=== PATIENT | male | born 1950 | race Caucasian/White ===

== ENCOUNTER 2017-08-12 16:29 | Emergency (ER) | payer OTHER ==
--- NOTE | 2017-08-12 16:43 | CPEKG ---
Heart Rate: 58 RR Interval: 1034 P-R Interval: 148 QRSD Interval: 88 QT Interval: 396 QTC Interval: 389 P [place]: 78 QRS [place]: -44 T Wave [place]: 69 EKG Severity - ABNORMAL ECG - EKG Impression: SINUS RHYTHM EKG Impression: RAA, CONSIDER BIATRIAL ABNORMALITIES EKG Impression: LEFT AXIS DEVIATION EKG Impression: Similar to previous Electronically Signed By: Augustus Hook 12-Aug-2017 17:03:07
[2017-08-12] MEDS ORDERED: ASPIRIN 81 MG CHEWABLE TAB PO ONE (16:54)
[2017-08-12 17:02] LABS: % IMMATURE GRANULYOCYTES 0.2 % (0.0-1.1); ABSOLUTE IMMATURE GRANULOCYTES 0.01 10^3/uL (0.00-0.10); ADD DIFF? NO; ADD MORPH? NO; ADD SCAN? NO; ATYPICAL LYMPHOCYTE FLAG 10 (0-99); FRAGMENT RBC FLAG 0 (0-99); HEMOGLOBIN 14.9 g/dL (13.7-17.5); LEFT SHIFT FLG 0 (0-99); LIPEMIA HEMOLYSIS FLAG 90 (0-99); MEAN CELL HEMOGLOBIN 33.8 pg (27.9-34.1); MEAN CELL HEMOGLOBIN CONCENTR. 34.7 g/dL (32.4-36.7); MEAN CELL VOLUME 97.5 fL (81.5-99.8); MEAN PLATELET VOLUME 10.2 fL (8.7-11.7); PLATELET CLUMPS FLAG 0 (0-99); PLATELET COUNT 268 10^3/uL (150-400); RED BLOOD CELL COUNT 4.41 10^6/uL (4.40-6.38); RED CELL DISTRIBUTION WIDTH 12.6 % (11.5-15.2)
--- NOTE | 2017-08-12 17:02 | EDPHY ---
H & P Stated Complaint: chest pressure with activity Time Seen by Provider: 08/12/17 16:36 HPI/ROS: CHIEF COMPLAINT: Chest tightness HISTORY OF PRESENT ILLNESS: The patient is a 67-year-old man who was hiking at 8,000 feet with his when he noticed easy fatigability and shortness of breath and chest tightness. His states that this is very unusual for him. He states that he still has symptoms if he tries to walk briskly. Yesterday he felt fine and he does not have any pain or shortness of breath at rest. He states that he had a catheterization in 2008 that revealed a small partially occluded vessel that was managed medically. 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 Edwards. No recent fevers or infections. REVIEW OF SYSTEMS: Constitutional: denies: chills, fever, recent illness, recent injury EENTM: denies: blurred vision, double vision, nose congestion Respiratory: denies: cough, shortness of breath Cardiac: See HPI Gastrointestinal/Abdominal: denies: abdominal pain, diarrhea, nausea, vomiting, blood streaked stools Genitourinary: denies: dysuria, frequency, hematuria, pain Musculoskeletal: denies: joint pain, muscle pain Skin: denies: lesions, rash, jaundice, bruising Neurological: denies: headache, numbness, paresthesia, tingling, dizziness, weakness Hematologic/Lymphatic: denies: blood clots, easy bleeding, easy bruising Immunologic/allergic: denies: HIV/AIDS, transplant EXAM: GENERAL: Well-appearing, well-nourished and in no acute distress. HEAD: Atraumatic, normocephalic. EYES: Pupils equal round and reactive to light, extraocular movements intact, sclera anicteric, conjunctiva are normal. ENT: TMs normal, nares patent, oropharynx clear without exudates. Moist mucous membranes. NECK: Normal range of motion, supple without lymphadenopathy or JVD. LUNGS: Breath sounds clear to auscultation bilaterally and equal. No wheezes rales or rhonchi. HEART: Regular rate and rhythm without murmurs, rubs or gallops. ABDOMEN: Soft, nontender, normoactive bowel sounds. No guarding, no rebound. No masses appreciated. BACK: No CVA tenderness, no spinal tenderness, step-offs or deformities EXTREMITIES: Normal range of motion, no pitting or edema. No clubbing or cyanosis. NEUROLOGICAL: Cranial nerves II through XII grossly intact. Normal speech, normal gait. 5/5 strength, normal movement in all extremities, normal sensation PSYCH: Normal mood, normal affect. SKIN: Warm, dry, normal turgor, no visible rashes or lesions. Source: Patient Exam Limitations: No limitations - Personal History Current Tetanus/Diphtheria Vaccine: Unsure Current Tetanus Diphtheria and Acellular Pertussis (TDAP): Unsure - Medical/Surgical History Hx Asthma: No Hx Chronic Respiratory Disease: No Hx Diabetes: No Hx Cardiac Disease: No Hx Renal Disease: No Hx Cirrhosis: No Hx Alcoholism: No Hx HIV/AIDS: No Hx Splenectomy or Spleen Trauma: No Other PMH: chronic neck pain, - Social History Smoking Status: Never smoked Alcohol Use: Sober Drug Use: None Constitutional: Initial Vital Signs Temperature (C) 36.9 C 08/12/17 16:31 Heart Rate 63 08/12/17 16:31 Respiratory Rate 16 08/12/17 16:31 Blood Pressure 131/89 H 08/12/17 16:31 O2 Sat (%) 97 08/12/17 16:31 O2 Delivery Mode Room Air O2 (L/minute) 2 Allergies/Adverse Reactions: mefloquine Allergy (Verified 08/12/17 16:35) Home Medications: Medication Instructions Recorded Ibuprofen [Motrin 600 mg (RX)] 600 mg PO 01/25/12 Ranitidine HCl [Zantac liquid UD 150 mg PO BID 02/14/12 (RX)] Medical Decision Making - Diagnostics EKG Interpretation: An EKG obtained and was read and documented in trace view. Please see trace view for full reading and report. Sinus rhythm, no acute ischemic changes ED Course/Re-evaluation: 6:15 p.m. we discussed the lab results. The patient is reassured. He is currently asymptomatic. I recommended admission. I think the patient loose initially is failed stress test and has partial obstruction that may need stenting. He does not wish to stay in the hospital. He is concerned about cost would like to [facility] He has seen Dr. Edwards before. He did eventually agree to a repeat troponin. I will notify Cardiology service for a follow-up. 6:20 p.m. I discussed the case with Dr. Whitaker from Cardiology who is aware and agrees with recommendation for admission but will ensure follow-up as soon as possible. 8:40 p.m.. We are about draw the patient's repeat troponin. He is completely comfortable and is in reading in the bed. He states that he is symptom free. I again offered admission and he declines. Repeat troponin pending. If this is negative bowel of his paperwork prepared for discharge. Care transferred to Dr. Leyva. Differential Diagnosis: Partial list of the Differential diagnosis considered include but were not limited to; acute coronary disease, coronary ski media, arrhythmia, and although unlikely based on the history and physical exam, I also considered infection, PE, pneumothorax, anxiety. I discussed these differential diagnoses and the plan with the patient as well as the usual and expected course. The patient understands that the diagnosis is provisional and that in medicine we are not always correct and that further workup is often warranted. Usual and customary warnings were given. All of the patient's questions were answered. The patient was instructed to return to the emergency department should the symptoms at all worsen or return, otherwise to followup with the physician as we discussed. - Data Points Laboratory Results: Laboratory Results 08/12/17 16:45 08/12/17 16:45 Medications Given: Discontinued Medications Aspirin (Aspirin) 324 mg PO EDNOW ONE Stop: 08/12/17 16:55 Last Admin: 08/12/17 17:05 Dose: 324 mg Departure - Departure Disposition: Home, Routine, Self-Care Clinical Impression: Chest pain Qualifiers: Chest pain type: unspecified Qualified Code(s): R07.9 - Chest pain, unspecified Condition: Fair Instructions: Chest Pain (ED) Referrals: Miguel Edwards MD [Medical Doctor] - 1-2 days without fail Rosangela Flores MD [Primary Care Provider] - As per Instructions
[2017-08-12 17:09] LABS: ANION GAP 9 mEq/L (8-16); CALCIUM 9.7 mg/dL (8.5-10.4); CARBON DIOXIDE 24 mEq/l (22-31); CHLORIDE 106 mEq/L (97-110); CREATININE 1.1 mg/dL (0.7-1.3); GLOMERULAR FILTRATION RATE > 60; GLUCOSE 72 mg/dL (70-100); POTASSIUM 4.1 mEq/L (3.5-5.2); SODIUM 139 mEq/L (134-144)
[2017-08-12 17:21] LABS: TROPONIN I < 0.012 ng/mL (0.000-0.034)
[2017-08-12 17:31] LABS: APTT 26.6 SEC (23.0-38.0); INR 0.98 (0.83-1.16); PROTIME(PATIENT) 12.9 SEC (12.0-15.0)
[2017-08-12 22:03] VITALS: BP 102/70; PULSE 58; RESP 18; TEMP 97.9; O2SAT 97
== END 2017-08-12 22:02 | disposition home or self-care (01) ==
DX: R07.9 Chest pain, unspecified (principal)

== ENCOUNTER 2017-08-23 19:31 | Observation (INO) | payer OTHER ==
[2017-08-23] MEDS ORDERED: NS 500 ML IV ONE (19:48)
--- NOTE | 2017-08-23 19:50 | CPEKG ---
Heart Rate: 63 RR Interval: 952 P-R Interval: 160 QRSD Interval: 106 QT Interval: 400 QTC Interval: 410 P [place]: 75 QRS [place]: -21 T Wave [place]: 63 EKG Severity - NORMAL ECG - EKG Impression: SINUS RHYTHM Electronically Signed By: Pat Douglas 23-Aug-2017 23:37:29
[2017-08-23 20:00] LABS: % IMMATURE GRANULYOCYTES 0.2 % (0.0-1.1); ABSOLUTE IMMATURE GRANULOCYTES 0.01 10^3/uL (0.00-0.10); ADD DIFF? NO; ADD MORPH? NO; ADD SCAN? NO; ATYPICAL LYMPHOCYTE FLAG 10 (0-99); FRAGMENT RBC FLAG 0 (0-99); HEMATOCRIT 42.9 % (40.0-51.0); HEMOGLOBIN 14.8 g/dL (13.7-17.5); LEFT SHIFT FLG 0 (0-99); LIPEMIA HEMOLYSIS FLAG 90 (0-99); MEAN CELL HEMOGLOBIN 33.3 pg (27.9-34.1); MEAN CELL HEMOGLOBIN CONCENTR. 34.5 g/dL (32.4-36.7); MEAN CELL VOLUME 96.6 fL (81.5-99.8); MEAN PLATELET VOLUME 10.2 fL (8.7-11.7); PLATELET CLUMPS FLAG 0 (0-99); PLATELET COUNT 296 10^3/uL (150-400); RED BLOOD CELL COUNT 4.44 10^6/uL (4.40-6.38); RED CELL DISTRIBUTION WIDTH 12.7 % (11.5-15.2)
[2017-08-23 20:21] LABS: ANION GAP 11 mEq/L (8-16); CALCIUM 9.6 mg/dL (8.5-10.4); CARBON DIOXIDE 27 mEq/l (22-31); CHLORIDE 101 mEq/L (97-110); CREATININE 0.9 mg/dL (0.7-1.3); GLOMERULAR FILTRATION RATE > 60; GLUCOSE 78 mg/dL (70-100); SODIUM 139 mEq/L (134-144)
[2017-08-23 20:32] LABS: TROPONIN I < 0.012 ng/mL (0.000-0.034)
--- NOTE | 2017-08-23 20:34 | EDPHY ---
H & P Time Seen by Provider: 08/23/17 19:47 HPI/ROS: HPI Chest pressure, shortness of breath. 67-year-old male by private vehicle with his . This patient was seen in our emergency department on August 12 for the same complaint. He had 2- troponins, unremarkable D-dimer, the emergency department physician wanted to admit him but he declined admission. He states that he felt better through the week. He reports that he saw a transit planning manager at [facility] yesterday. An EKG was repeated. An echocardiogram and provocative testing or not done. He reports worsening shortness of breath and dyspnea on exertion since this morning. He also describes having a substernal chest pressure which has been worsening today. ROS: Constitutional: No fever, no chills. No weakness. Eyes: No discharge. No changes in vision. ENT: No sore throat. No nasal congestion or rhinorrhea. Respiratory: No cough. As above. Cardiac: As above, no palpitations. Gastrointestinal: No abdominal pain, no vomiting, no diarrhea. Genitourinary: No hematuria. No dysuria or increased frequency with urination. Musculoskeletal: No back pain. No neck pain. No myalgias or arthralgias. Skin: No rashes. Neurological: No headache. No focal weakness or altered sensation. Past medical history: Chronic neck pain. Coronary artery disease with stents placed in 2008. As above. Social history: Nonsmoker. Here with his . No alcohol. Physical Exam: General Appearance: Alert, no distress. This patient is responding to questions appropriately and in full sentences. This patient appears well- hydrated and well-nourished. Eyes: Pupils equal and round no pallor or injection. No lid edema, erythema or injection. Respiratory: There are no retractions, lungs are clear to auscultation with good air movement bilaterally. No tachypnea. Cardiovascular: Regular rate and rhythm. No murmur appreciated. Gastrointestinal: Abdomen is soft and nontender, no masses, bowel sounds normal. No focal tenderness at McBurney's point. No Guzman sign. Neurological: Motor sensory function is grossly intact. Cranial nerves are normal. Gait is normal. Skin: Warm and dry, no rashes. Musculoskeletal: Neck is supple and nontender. Extremities are symmetrical. All joints range without pain or impingement. Psychiatric: No agitation. No depression. Database: EKG: EKG time is 7:48 p.m.; EKG shows a narrow complex normal sinus rhythm with a ventricular rate of 63. The [place], QRS, QT intervals are within normal limits. There are no ST-T wave changes indicative of ischemic or injury pattern. No evidence of right heart strain. Interpreted by me. Imaging: Chest x-ray AP portable; the cardiac mediastinal silhouette is unremarkable. No evidence of infiltrate or pneumothorax. No acute cardiopulmonary disease process noted. Interpreted by me. Procedures: Emergency department course: Vital signs reviewed and are normal. He was given 324 mg of chewed aspirin. He was placed on a cnc machine operator. IV established. EKG obtained and reviewed by myself. I discussed plan to admit him for provocative testing and echocardiogram. He endorses. 9:00 p.m., patient re-evaluated. Resting comfortably at this time. Results of his diagnostic workup discussed with him and his . All of their questions were answered. 9:05 p.m., spoke with on-call hospitalist Dr. Cathleen Forrester. She accepts this patient for admission to telemetry. Patient's remaining emergency department course under my care has been uneventful. He was admitted in stable condition to telemetry. Differential Diagnosis: The differential diagnosis on this patient includes but is not limited to thyroid disorder, acute coronary syndrome, heart failure. This represents a partial list of diagnoses considered. These considerations are based on history , physical exam, past history, reassessment and diagnostic testing. Smoking Status: Never smoked Constitutional: Initial Vital Signs Temperature (C) 36.7 C 08/23/17 19:36 Heart Rate 64 08/23/17 19:36 Respiratory Rate 16 08/23/17 19:36 Blood Pressure 128/83 H 08/23/17 19:36 O2 Sat (%) 100 08/23/17 19:36 O2 Delivery Mode Room Air Allergies/Adverse Reactions: mefloquine Allergy (Verified 08/12/17 16:35) Home Medications: Medication Instructions Recorded Ibuprofen [Motrin 600 mg (RX)] 600 mg PO 01/25/12 Ranitidine HCl [Zantac liquid UD 150 mg PO BID 02/14/12 (RX)] Medical Decision Making - Data Points Laboratory Results: Laboratory Results 08/23/17 19:50 08/23/17 19:50 08/23/17 08/23/17 08/23/17 19:50 19:50 19:50 WBC RBC Hgb Hct MCV MCH MCHC RDW Plt Count MPV Neut % (Auto) Lymph % (Auto) [place] % (Auto) Eos % (Auto) Baso % (Auto) Nucleat RBC Rel Count Absolute Neuts (auto) Absolute Lymphs (auto) Absolute Monos (auto) Absolute Eos (auto) Absolute Basos (auto) Absolute Nucleated RBC Immature Gran % Immature Gran # D-Dimer < 0.27 ug/mLFEU ug/mLFEU (0.00-0.50) Sodium 139 mEq/L mEq/L (134-144) Potassium 4.0 mEq/L mEq/L (3.5-5.2) Chloride 101 mEq/L mEq/L (97-110) Carbon Dioxide 27 mEq/l mEq/l (22-31) Anion Gap 11 mEq/L mEq/L (8-16) BUN 17 mg/dL mg/dL (7-23) Creatinine 0.9 mg/dL mg/dL (0.7-1.3) Estimated GFR > 60 Glucose 78 mg/dL mg/dL (70-100) Calcium 9.6 mg/dL mg/dL (8.5-10.4) Total Bilirubin 0.5 mg/dL mg/dL (0.1-1.4) Conjugated Bilirubin 0.1 mg/dL mg/dL (0.0-0.5) Unconjugated Bilirubin 0.4 mg/dL mg/dL (0.0-1.1) AST 25 IU/L IU/L (17-59) ALT 31 IU/L IU/L (21-72) Alkaline Phosphatase 73 IU/L IU/L (38-126) Troponin I < 0.012 ng/mL ng/mL (0.000-0.034) NT-Pro-B Natriuret Pep 90 pg/mL pg/mL (0-125) Total Protein 6.8 g/dL g/dL (6.3-8.2) Albumin 4.0 g/dL g/dL (3.5-5.0) Lipase 93 IU/L IU/L (23-300) TSH Pending 08/23/17 19:50 WBC 6.12 10^3/uL 10^3/uL (3.80-9.50) RBC 4.44 10^6/uL 10^6/uL (4.40-6.38) Hgb 14.8 g/dL g/dL (13.7-17.5) Hct 42.9 % % (40.0-51.0) MCV 96.6 fL fL (81.5-99.8) MCH 33.3 pg pg (27.9-34.1) MCHC 34.5 g/dL g/dL (32.4-36.7) RDW 12.7 % % (11.5-15.2) Plt Count 296 10^3/uL 10^3/uL (150-400) MPV 10.2 fL fL (8.7-11.7) Neut % (Auto) 60.0 % % (39.3-74.2) Lymph % (Auto) 29.9 % % (15.0-45.0) [place] % (Auto) 7.8 % % (4.5-13.0) Eos % (Auto) 1.8 % % (0.6-7.6) Baso % (Auto) 0.3 % % (0.3-1.7) Nucleat RBC Rel Count 0.0 % % (0.0-0.2) Absolute Neuts (auto) 3.67 10^3/uL 10^3/uL (1.70-6.50) Absolute Lymphs (auto) 1.83 10^3/uL 10^3/uL (1.00-3.00) Absolute Monos (auto) 0.48 10^3/uL 10^3/uL (0.30-0.80) Absolute Eos (auto) 0.11 10^3/uL 10^3/uL (0.03-0.40) Absolute Basos (auto) 0.02 10^3/uL 10^3/uL (0.02-0.10) Absolute Nucleated RBC 0.00 10^3/uL 10^3/uL (0-0.01) Immature Gran % 0.2 % % (0.0-1.1) Immature Gran # 0.01 10^3/uL 10^3/uL (0.00-0.10) D-Dimer Sodium Potassium Chloride Carbon Dioxide Anion Gap BUN Creatinine Estimated GFR Glucose Calcium Total Bilirubin Conjugated Bilirubin Unconjugated Bilirubin AST ALT Alkaline Phosphatase Troponin I NT-Pro-B Natriuret Pep Total Protein Albumin Lipase TSH Medications Given: Discontinued Medications Aspirin (Aspirin) 324 mg PO EDNOW ONE Stop: 08/23/17 20:36 Last Admin: 08/23/17 20:44 Dose: 324 mg Sodium Chloride (Ns) 500 mls @ 1,000 mls/hr IV EDNOW ONE PRN Reason: Protocol Stop: 08/23/17 20:17 Last Admin: 08/23/17 20:05 Dose: 500 mls Departure - Departure Disposition: [facility] [place] Inpatient Acute Clinical Impression: Dyspnea on exertion, Chest pressure Referrals: Rosangela Flores MD [Primary Care Provider] - As per Instructions
[2017-08-23] MEDS ORDERED: ASPIRIN 81 MG CHEWABLE TAB PO ONE (20:35)
[2017-08-23 20:43] LABS: BILIRUBIN,TOTAL 0.5 mg/dL (0.1-1.4); BILIRUBIN-CONJUGATED 0.1 mg/dL (0.0-0.5); BILIRUBIN-UNCONJUGATED 0.4 mg/dL (0.0-1.1); TOTAL PROTEIN 6.8 g/dL (6.3-8.2)
[2017-08-23] MEDS ORDERED: ONDANSETRON 4 MG/2 ML VIAL IVP PRN (22:18)
[2017-08-23] MEDS ORDERED: ONDANSETRON DISINTEGRATING 4 MG TAB PO PRN (22:18)
[2017-08-23] MEDS ORDERED: ACETAMINOPHEN 325 MG TAB PO PRN (22:18)
[2017-08-23] MEDS ORDERED: ONDANSETRON DISINTEGRATING 4 MG TAB TUBE PRN (22:24)
[2017-08-23] MEDS ORDERED: ACETAMINOPHEN 650 MG/20.3 ML UDCUP TUBE PRN (22:24)
--- NOTE | 2017-08-23 23:07 | PDGENHP ---
History and Physical - Chief Complaint Dyspnea - History of Present Illness 67 yo M w/ OA presents with dyspnea. 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 He also noted some mild, 2/10, chest pressure that improved with rest. He is usually quite athletic, can run up several flights of stairs without issue, and often undertakes long and strenuous hikes without these symptoms. He was first seen in the ED on 08/12 for similar symptoms. During that episode he was starting a hike when he again felt dyspneic and decided to stop. He started to feel better in the interim until the episode described above on the day of admission. History Information - Allergies/Home Medication List Allergies/Adverse Reactions: mefloquine Allergy (Verified 08/12/17 16:35) Home Medications: Aspirin EC [Aspirin EC 81 mg (*)] 81 mg PO DAILY 08/23/17 [Last Taken 08/22/17] Herbals/Supplements -Info Only 1 ea PO DAILY 08/23/17 [Last Taken 08/22/17] Ibuprofen [Motrin (*)] 200 mg PO DAILY PRN 08/23/17 [Last Taken 08/22/17] Omeprazole [Prilosec 20 mg] 20 mg PO DAILY PRN 08/23/17 [Last Taken 08/22/17] I have personally reviewed and updated: family history, medical history - Past Medical History arthritis - Family History Positive for: CAD - Social History Smoking Status: Never smoked Review of Systems Review of Systems: ROS: 10pt was reviewed & negative except for what was stated in HPI & below Physical Exam Physical Exam: Temp Pulse Resp BP Pulse Ox 36.4 C 53 L 14 118/73 97 08/23/17 22:35 08/23/17 22:35 08/23/17 22:35 08/23/17 22:35 08/23/17 22:35 Constitutional: no apparent distress, appears nourished Eyes: PERRL, EOMI Ears, Nose, Mouth, Throat: moist mucous membranes, no oral mucosal ulcers Cardiovascular: regular rate and rhythym, no murmur, rub, or gallop Respiratory: no respiratory distress, no rales or rhonchi Gastrointestinal: normoactive bowel sounds, soft, non-tender abdomen Skin: warm, normal color Musculoskeletal: full muscle strength, no muscle tenderness Neurologic: AAOx3, CN II-XII Intact Psychiatric: interacting appropriately, not anxious Lab Data & Imaging Review 08/23/17 19:50 08/23/17 19:50 WBC 6.12 10^3/uL (3.80-9.50) 08/23/17 19:50 RBC 4.44 10^6/uL (4.40-6.38) 08/23/17 19:50 Hgb 14.8 g/dL (13.7-17.5) 08/23/17 19:50 Hct 42.9 % (40.0-51.0) 08/23/17 19:50 MCV 96.6 fL (81.5-99.8) 08/23/17 19:50 MCH 33.3 pg (27.9-34.1) 08/23/17 19:50 MCHC 34.5 g/dL (32.4-36.7) 08/23/17 19:50 RDW 12.7 % (11.5-15.2) 08/23/17 19:50 Plt Count 296 10^3/uL (150-400) 08/23/17 19:50 MPV 10.2 fL (8.7-11.7) 08/23/17 19:50 Neut % (Auto) 60.0 % (39.3-74.2) 08/23/17 19:50 Lymph % (Auto) 29.9 % (15.0-45.0) 08/23/17 19:50 [place] % (Auto) 7.8 % (4.5-13.0) 08/23/17 19:50 Eos % (Auto) 1.8 % (0.6-7.6) 08/23/17 19:50 Baso % (Auto) 0.3 % (0.3-1.7) 08/23/17 19:50 Nucleat RBC Rel Count 0.0 % (0.0-0.2) 08/23/17 19:50 Absolute Neuts (auto) 3.67 10^3/uL (1.70-6.50) 08/23/17 19:50 Absolute Lymphs (auto) 1.83 10^3/uL (1.00-3.00) 08/23/17 19:50 Absolute Monos (auto) 0.48 10^3/uL (0.30-0.80) 08/23/17 19:50 Absolute Eos (auto) 0.11 10^3/uL (0.03-0.40) 08/23/17 19:50 Absolute Basos (auto) 0.02 10^3/uL (0.02-0.10) 08/23/17 19:50 Absolute Nucleated RBC 0.00 10^3/uL (0-0.01) 08/23/17 19:50 Immature Gran % 0.2 % (0.0-1.1) 08/23/17 19:50 Immature Gran # 0.01 10^3/uL (0.00-0.10) 08/23/17 19:50 D-Dimer < 0.27 ug/mLFEU (0.00-0.50) 08/23/17 19:50 Sodium 139 mEq/L (134-144) 08/23/17 19:50 Potassium 4.0 mEq/L (3.5-5.2) 08/23/17 19:50 Chloride 101 mEq/L (97-110) 08/23/17 19:50 Carbon Dioxide 27 mEq/l (22-31) 08/23/17 19:50 Anion Gap 11 mEq/L (8-16) 08/23/17 19:50 BUN 17 mg/dL (7-23) 08/23/17 19:50 Creatinine 0.9 mg/dL (0.7-1.3) 08/23/17 19:50 Estimated GFR > 60 08/23/17 19:50 Glucose 78 mg/dL (70-100) 08/23/17 19:50 Calcium 9.6 mg/dL (8.5-10.4) 08/23/17 19:50 Total Bilirubin 0.5 mg/dL (0.1-1.4) 08/23/17 19:50 Conjugated Bilirubin 0.1 mg/dL (0.0-0.5) 08/23/17 19:50 Unconjugated Bilirubin 0.4 mg/dL (0.0-1.1) 08/23/17 19:50 AST 25 IU/L (17-59) 08/23/17 19:50 ALT 31 IU/L (21-72) 08/23/17 19:50 Alkaline Phosphatase 73 IU/L (38-126) 08/23/17 19:50 Troponin I < 0.012 ng/mL (0.000-0.034) 08/23/17 19:50 NT-Pro-B Natriuret Pep 90 pg/mL (0-125) 08/23/17 19:50 Total Protein 6.8 g/dL (6.3-8.2) 08/23/17 19:50 Albumin 4.0 g/dL (3.5-5.0) 08/23/17 19:50 Lipase 93 IU/L (23-300) 08/23/17 19:50 TSH 2.300 uIU/mL (0.465-4.680) 08/23/17 19:50 Visualized and Interpreted Chest x-ray results: Yes Chest X-Ray results: no infiltrate Visualized and Interpreted EKG results: Yes EKG Interpretation: Positive for: normal sinsus rhythm, NS ST wave abnormalities Assessment & Plan Assessment: 67 yo M w/ OA presents with now second episode of dyspnea on exertion and mild chest pressure. Plan: 1. Chest pressure, dyspnea - Second visit to the ED for the same, he refused admission during his first visit on 08/12. Work-up thus far unremarkable with negative troponin and non-ischemic ECG. D-dimer also negative and VS within normal limits. Noting exertional nature of symptoms, very reasonable to rule out cardiac etiologies. CXR unremarkable aside from some diaphragmatic flattening despite being a never-smoker. It's possible second hand tobacco exposure may have led to some mild, undiagnosed COPD, which could be pursued if cardiac work-up unrevealing. - Trend cardiac enzymes, monitor on telemetry - Will order treadmill stress test for risk stratification noting patient's excellent functional baseline Diet - Regular, NPO @ MN Code - Full Ppx - SCDs Dispo - Admit to observation status
[2017-08-24 05:19] LABS: % IMMATURE GRANULYOCYTES 0.2 % (0.0-1.1); ABSOLUTE IMMATURE GRANULOCYTES 0.01 10^3/uL (0.00-0.10); ADD DIFF? NO; ADD MORPH? NO; ADD SCAN? NO; ATYPICAL LYMPHOCYTE FLAG 20 (0-99); FRAGMENT RBC FLAG 0 (0-99); HEMATOCRIT 36.9 % (40.0-51.0); HEMOGLOBIN 12.7 g/dL (13.7-17.5); LEFT SHIFT FLG 0 (0-99); LIPEMIA HEMOLYSIS FLAG 90 (0-99); MEAN CELL HEMOGLOBIN 33.2 pg (27.9-34.1); MEAN CELL HEMOGLOBIN CONCENTR. 34.4 g/dL (32.4-36.7); MEAN CELL VOLUME 96.3 fL (81.5-99.8); MEAN PLATELET VOLUME 10.8 fL (8.7-11.7); PLATELET CLUMPS FLAG 0 (0-99); PLATELET COUNT 255 10^3/uL (150-400); RED BLOOD CELL COUNT 3.83 10^6/uL (4.40-6.38); RED CELL DISTRIBUTION WIDTH 12.8 % (11.5-15.2)
[2017-08-24 05:46] LABS: ANION GAP 11 mEq/L (8-16); CALCIUM 8.8 mg/dL (8.5-10.4); CARBON DIOXIDE 24 mEq/l (22-31); CHLORIDE 108 mEq/L (97-110); CREATININE 0.9 mg/dL (0.7-1.3); GLOMERULAR FILTRATION RATE > 60; GLUCOSE 92 mg/dL (70-100); MAGNESIUM 1.9 mg/dL (1.6-2.3); POTASSIUM 4.3 mEq/L (3.5-5.2); SODIUM 143 mEq/L (134-144)
[2017-08-24 05:54] LABS: TROPONIN I < 0.012 ng/mL (0.000-0.034)
[2017-08-24] MEDS ORDERED: NON-FORMULARY NEW DRUG (Omeprazole [Prilosec 20 Mg] 20 MG) PO PRN (08:01)
[2017-08-24] MEDS ORDERED: ACETAMINOPHEN 325 MG TAB PO PRN (08:05)
[2017-08-24] MEDS ORDERED: PANTOPRAZOLE SODIUM 40 MG TAB PO PRN (08:06)
[2017-08-24 08:22] VITALS: PULSE 62; RESP 16; TEMP 97.9; O2SAT 94
[2017-08-24] MEDS ORDERED: ONDANSETRON DISINTEGRATING 4 MG TAB PO PRN (08:30)
[2017-08-24] MEDS ORDERED: ASPIRIN EC 81 MG TAB PO SCH (09:00)
--- NOTE | 2017-08-24 10:27 | HOSPPROG ---
Hospitalist Progress Note Assessment/Plan: 67 yo male with no significant PMHx admitted for CARPIO and CP. W/u thus far is negative. CXR unremarkable. EKG NSR. Tele: Sinus Timothy (he says this is baseline ), D-Dimer unremarkable, Labs unremarkable, trops negative. He is not having chest pain at this time. He is scheduled for treadmill stress test but has a JOHNSON today and does not think he can do the test. He still wants a stress test and so it will be changed to a Kala scan. #CP #JOHNSON, no focal weakness #Sinus Bradycardia at rest #Dyspnea on Exertion Plan: -Kala scan -tylenol for JOHNSON -Cotinue Aspirin 81mg daily -anticipate discharge today Subjective: No CP or SOB. On RA. + JOHNSON. No focal weakness Objective: Vital Signs Temp Pulse Resp BP Pulse Ox 36.6 C 62 16 99/73 L 94 08/24/17 08:00 08/24/17 08:00 08/24/17 08:00 08/24/17 08:00 08/24/17 08:00 Laboratory Results 08/24/17 03:29 08/24/17 03:29 08/23/17 08/24/17 08/25/17 05:59 05:59 05:59 Intake Total 300 Output Total 350 Balance -50 - Physical Exam Constitutional: no apparent distress, appears nourished, not in pain Eyes: PERRL Ears, Nose, Mouth, Throat: moist mucous membranes, hearing normal Cardiovascular: regular rate and rhythym, no murmur, rub, or gallop Respiratory: no respiratory distress, no rales or rhonchi, clear to auscultation Gastrointestinal: normoactive bowel sounds, soft, non-tender abdomen Skin: warm Neurologic: AAOx3 Psychiatric: interacting appropriately, not anxious, not encephalopathic, thought process linear ICD10 Worksheet Patient Problems: Problems Problem Status Onset Chest pressure Acute Dyspnea on exertion Acute Chest pain Acute
[2017-08-24] MEDS ORDERED: REGADENOSON 0.4 MG/5 ML SYR IVP ONE (10:52)
--- NOTE | 2017-08-24 12:07 | CPR ---
[f rep st] NONINVASIVE CARDIAC PROCEDURE REPORT DATE OF PROCEDURE: 08/24/2017 PROCEDURE: Lexiscan nuclear stress test. INDICATION: The patient is a 67-year-old male who first experienced chest pressure while hiking up a t [place] approximately 2 weeks ago. This was associated with shortness of breath and exercise intolerance. He was evaluated in the ER and discharged home. Since then, he has had fairly predict able exertional chest discomfort and shortness of breath. His symptoms are worse when using his uppe r body or when squatting down. DESCRIPTION OF PROCEDURE: Consent was obtained. The patient was placed on continuous telemetry. Hi s resting EKG revealed normal sinus rhythm without any ST-T wave changes to suggest ischemia. The pa tient was infused with Lexiscan and complained of abdominal discomfort and chest tightness. He remai sagrario in normal sinus rhythm throughout the procedure. His heart rate did increase from 51 beats per m inute to 92 beats per minute. His blood pressure was stable around 92/72, throughout the procedure. His symptoms improved 5 minutes into recovery. PLAN: Await nuclear images. I would have a low threshold to proceed with an angiogram given his exe rtional symptoms. /[id number]/MODL
[2017-08-24 12:15] VITALS: BP 122/72
--- NOTE | 2017-08-24 13:31 | PDDCSUM ---
Discharge Summary Discharge Summary: 67 yo male with no significant PMHx admitted for CARPIO and CP. W/u egative. CXR unremarkable. EKG NSR. Tele: Sinus Timothy (he says this is baseline), D-Dimer unremarkable, Labs unremarkable, trops negative. Kala scan unremarkable, no e/ of ischemia, normal contractility, preserved LVEF. Given negative w/u and no further sx's, will discharge. F/u with PCP 1-2 weeks. #CP, non cardiac #JOHNSON, no focal weakness #Sinus Bradycardia at rest #Dyspnea on Exertion, no cardiac. Resolved. Exam: see progress note from today Meds: see med rec total time spent on discharge is 35 minutes
--- NOTE | 2017-08-24 17:01 | ASDISCHSUM ---
Discharge Information Plan Status:Home with No Needs Medically Cleared to Leave:08/24/2017 Discharge Date:08/24/2017 03:43 PM CM D/C Disposition: ADT D/C Disposition:Home, Routine, Self-Care Projected Discharge Date:08/24/2017 12:00 AM Transportation at D/C: Discharge Delay Reason: Follow-Up Date:08/24/2017 12:00 AM Discharge Slot: Final Diagnosis: Placement Information Patient Contact Information Contact Name:YAEL Relationship: Address:[address] Work Phone: City:[place] Alternate Phone: [facility]/Zip Code:[place] [address] Email: Financial Information Financial Class: Primary Plan Desc:MEDICARE OUTPATIENT Primary Plan Number:[id number] Secondary Plan Desc: Secondary Plan Number: Assessment Information Intervention Information Intervention Type:*VALLE-Signed Date of Service:08/24/2017 10:19 AM Patient Type:Observation Staff Member:Tami Paz Hours: Discipline: Severity: Comment:
== END 2017-08-24 15:43 | disposition home or self-care (01) ==
LOC: F2W 22:01
PROVIDERS: ADMIT Internal Medicine; ATTEND Family Medicine
DX: R07.89 Other chest pain (principal); R06.09 Other forms of dyspnea; R51 Headache; R00.1 Bradycardia, unspecified; M54.2 Cervicalgia; I25.10 Atherosclerotic heart disease of native coronary artery without angina pectoris; Z79.82 Long term (current) use of aspirin; Z82.49 Family history of ischemic heart disease and other diseases of the circulatory system; Z95.5 Presence of coronary angioplasty implant and graft
CPT/HCPCS: 71010; 78452; 93005; 93017; A9500; G0378; J2785

== ENCOUNTER → 2017-09-08 | Outpatient (CLI) | payer OTHER | LOC: BHFA 13:15 | PROVIDERS: ATTEND Internal Medicine Cardiovascular Disease | DX: I25.10 Atherosclerotic heart disease of native coronary artery without angina pectoris (principal); R07.89 Other chest pain; R06.02 Shortness of breath ==

== ENCOUNTER → 2017-09-27 | Outpatient (CLI) | payer OTHER | LOC: BHLMT 10:45 | PROVIDERS: ATTEND Internal Medicine Cardiovascular Disease | DX: I25.10 Atherosclerotic heart disease of native coronary artery without angina pectoris (principal); R07.9 Chest pain, unspecified | CPT/HCPCS: 93306-PO ==

== ENCOUNTER → 2017-10-02 | Outpatient (CLI) | payer OTHER | LOC: BHCLAF 13:15 | PROVIDERS: ATTEND Internal Medicine Interventional Cardiology | DX: R10.9 Unspecified abdominal pain (principal) | CPT/HCPCS: 76775-PO ==